=== PATIENT | male | born 1975 ===

== ENCOUNTER → 2020-08-01 11:35 | Outpatient (REF) | payer BC, SELFPAY | LOC: ANHLAB 11:35 | PROVIDERS: Visit Provider Nurse Practitioner | DX: C44.319 Basal cell carcinoma of skin of other parts of face (principal) | CPT/HCPCS: 88305 ==

== ENCOUNTER → 2020-09-18 15:10 | Outpatient (REF) | payer BC, SELFPAY | LOC: ANHLAB 15:10 | PROVIDERS: Visit Provider Nurse Practitioner | DX: R22.9 Localized swelling, mass and lump, unspecified (principal) | CPT/HCPCS: 88304 ==

== ENCOUNTER → 2020-10-16 09:14 | Outpatient (REF) | payer BC, SELFPAY | LOC: ANHLAB 09:14 | PROVIDERS: Visit Provider Nurse Practitioner | DX: C44.319 Basal cell carcinoma of skin of other parts of face (principal) | CPT/HCPCS: 88305; 88331 ==